=== PATIENT | male | born 1975 | race Two or more races ===

== ENCOUNTER 2022-08-12 14:53 | Inpatient (IN) | payer MEDICAID ==
[~2022-08-12] VITALS: Ht 182.9 cm; Wt 70.8 kg
[2022-08-12] MEDS ORDERED: LORAZEPAM 2 MG/1 ML VIAL IM ONE (15:00)
[2022-08-12] MEDS ORDERED: LORAZEPAM 2 MG/1 ML VIAL ONE (15:56)
[2022-08-12] MEDS ORDERED: KETAMINE HCL 500 MG/10 ML INJ ONE (17:05)
[2022-08-12] MEDS ORDERED: KETAMINE HCL 500 MG/10 ML INJ IM STA (17:11)
--- NOTE | 2022-08-12 17:13 | NUR ---
verbally ordered 50 mg ketamine IM, given left deltoid.
[2022-08-12] MEDS ORDERED: LIDOCAINE HCL 1% 20 ML VIAL ONE (17:33)
--- NOTE | 2022-08-12 17:44 | NUR ---
wasted 450mg ketamine, entered in omnicell also.
--- NOTE | 2022-08-12 18:29 | NUR ---
Called [facility] for transport back to [facility], ETA 1999.
[2022-08-12] MEDS ORDERED: IV NORMAL SALINE 1000 ML BAG IV ONE (19:45)
[2022-08-12] MEDS ORDERED: ACET-2154 GT (20:29)
[2022-08-12] MEDS ORDERED: LORA2VIA33 IM (20:29)
[2022-08-12] MEDS ORDERED: ENOX40DI SQ (20:29)
[2022-08-12] MEDS ORDERED: DOCU-141 GT (20:29)
[2022-08-12] MEDS ORDERED: HYDR-3972 GT (20:29)
[2022-08-12] MEDS ORDERED: LAMO100T2 GT (20:29)
[2022-08-12] MEDS ORDERED: BISA10SU61 RC (20:29)
[2022-08-12] MEDS ORDERED: TOPI100T GT (20:29)
[2022-08-12] MEDS ORDERED: LIOT25TA7 PO (20:29)
[2022-08-12] MEDS ORDERED: GABA300C GT (20:29)
[2022-08-12] MEDS ORDERED: LEVE1000 GT (20:29)
[2022-08-12] MEDS ORDERED: LEVO75TA7 GT (20:29)
[2022-08-12] MEDS ORDERED: MAGN400O6 GT (20:29)
[2022-08-12] MEDS ORDERED: NA P133E RC (20:29)
[2022-08-12] MEDS ORDERED: MULT-594 GT (20:29)
[2022-08-12] MEDS ORDERED: METO50TA16 PO (20:29)
[2022-08-12] MEDS ORDERED: ACET-73 GT (20:29)
[2022-08-12] MEDS ORDERED: HALOPERIDOL LACTATE 5 MG/1 ML VIAL IM ONE (20:30)
--- NOTE | 2022-08-12 21:04 | NUR ---
Ambulance crew unabole to take patient due to elevated HR of 138. Unable IV, bloodwork obtained by physician, femoral stick. [facility] nurse called to come in and stated that they would not be coming in at this hour. The ER physician reported this to [employer] and stated that patient would need to be admitted to hospital due to inability to give IV fluids and then DC patient.
[2022-08-12 21:13] LABS: CARBON DIOXIDE 23 mmol/L (21-32); CHLORIDE 106 mmol/L (98-107); CREATININE 0.8 mg/dL (0.6-1.3); GLUCOSE 114 mg/dL (74-106); POTASSIUM 3.7 mmol/L (3.5-5.1); UREA NITROGEN, BLOOD 13 mg/dL (7-18)
[2022-08-12 21:24] LABS: BILIRUBIN,DIRECT 0.3 mg/dL (0.0-0.2); TOTAL PROTEIN, SERUM 7.6 g/dL (6.4-8.2)
[2022-08-12 21:28] LABS: HEMATOCRIT 50.8 % (36.7-47.1); MEAN CORPUSCULAR HEMOGLOBIN 31.9 uug (23.8-33.4); MEAN CORPUSCULAR VOLUME 89.9 fL (73.0-96.2); PLATELET COUNT (AUTO) 163 K/uL (152-348)
--- NOTE | 2022-08-12 23:17 | NUR ---
Dr. Garcias on panel call with Denise Quintana DNP.
[2022-08-12] MEDS ORDERED: CEFTRIAXONE 1 G VIAL ONE (23:51)
[2022-08-13] MEDS ORDERED: IV NORMAL SALINE 1000 ML BAG IV ONE
[2022-08-13] MEDS ORDERED: CEFTRIAXONE 1 G in IV DEXTROSE 5% 50 ML IV ONE ×2
[2022-08-13 00:16] LABS: MEAN CORPUSCULAR HEMOGLOBIN 32.1 uug (23.8-33.4); MEAN CORPUSCULAR VOLUME 88.9 fL (73.0-96.2); PLATELET COUNT (AUTO) 173 K/uL (152-348)
[2022-08-13 00:26] LABS: CREATININE 0.9 mg/dL (0.6-1.3); POTASSIUM 3.8 mmol/L (3.5-5.1)
[2022-08-13 02:11] LABS: LYMPHOCYTES % (MANUAL) 11 % (20-40); MONOCYTES % (MANUAL) 6 % (2-10); NEUTROPHILS % (MANUAL) 83 % (42-75)
[2022-08-13] MEDS ORDERED: IV 0.9% SODIUM CHLORID+ 20 KCL 1,000 ML IV ONE (02:30)
[2022-08-13] MEDS ORDERED: KETAMINE HCL 500 MG/10 ML INJ ONE (02:47)
[2022-08-13] MEDS ORDERED: IOHEXOL 350 100 ML INFUS..BTL ONE (03:00)
[2022-08-13] MEDS ORDERED: SWABABLE VALVE TRANSFER SET EA MC ONE (03:00)
[2022-08-13] MEDS ORDERED: IV NORMAL SALINE 250 ML IV ONE (03:01)
--- NOTE | 2022-08-13 03:35 | NUR ---
Pt out to CT, accompanied pt to CT, due to moderate sedation procedure. MD, and RT at bedside, pt on monitor.
[2022-08-13] MEDS ORDERED: KETAMINE HCL 500 MG/10 ML INJ IV ONE (03:45)
[2022-08-13] MEDS ORDERED: IV 0.9% SODIUM CHLORID+ 20 KCL 1,000 ML ONE (04:31)
--- NOTE | 2022-08-13 05:51 | NUR ---
Called [facility] to page Anel Sarkar NP.
[2022-08-13] MEDS ORDERED: REMEDY ESSENTIAL ZINC PASTE 113 GM TP PRN (06:15)
[2022-08-13] MEDS ORDERED: ONDANSETRON 4 MG/2 ML VIAL IV PRN (06:15)
[2022-08-13] MEDS ORDERED: ACETAMINOPHEN 325 MG TABLET-SA PATIENTS-PAIN ONLY GT PRN (06:15)
[2022-08-13] MEDS ORDERED: ACETAMINOPHEN ES 500 MG TABLET- SA PATIENTS-PAIN ONLY GT PRN (06:15)
[2022-08-13] MEDS ORDERED: ACETAMINOPHEN 325 MG TABLET GT PRN (06:15)
[2022-08-13] MEDS ORDERED: MAGNESIUM HYDROXIDE 30 ML LIQUID UDC GT PRN (06:15)
[2022-08-13] MEDS ORDERED: MAGNESIUM HYDROXIDE 30 ML LIQUID UDC PO PRN (06:15)
[2022-08-13] MEDS ORDERED: CEFTRIAXONE 1 G in IV DEXTROSE 5% 50 ML IV SCH (06:15)
[2022-08-13] MEDS ORDERED: FLEET ENEMA 133 ML BOTTLE RC PRN (06:15)
[2022-08-13] MEDS ORDERED: BISACODYL 10 MG SUPP.RECT RC PRN (06:15)
[2022-08-13] MEDS ORDERED: HYDROMORPHONE 1 MG/1 ML DISP.SYRIN ONE (08:00)
[2022-08-13] MEDS: HYDROMORPHONE 1 MG/1 ML DISP.SYRIN IV PRN (08:04)
[2022-08-13] MEDS ORDERED: CEFTRIAXONE 1 G VIAL ONE (08:11)
[2022-08-13] MEDS ORDERED: ACETAMINOPHEN 325 MG TABLET ONE (08:11)
[2022-08-13] MEDS ORDERED: CEFTRIAXONE /D5W 50ML IVPB **ER PYXIS IV ONE (08:13)
[2022-08-13] MEDS ORDERED: ACETAMINOPHEN 650 MG SUPP.RECT RC ONE (08:30)
--- NOTE | 2022-08-13 09:30 | NUR ---
Received the patient from the off-going nurse. Patient observed on the monitor with sinus tachycardia, asleep but responsive to tactile stimuli. Patient is on a simple mask, O2 @ 9 LPM saturation 98%. Patient observed with Kurlex bandage to his head, (LT) eye swollen shut with periorbital ecchymosis, nose swollen with dried blood and upper lip swollen. Patient has a G-Tube, site WNL. Patient has a 18French Felder catheter in place, attached to his (RT) thigh, below the bladder and draining straw color urine, 420ML emptied. Patient has (LT) groin TLC in place, site WNL and KCL 20mEq @ 200ML infusing. Patient observed moaning/groaning and restless, observed with elevated temp 101.3. Patient medicated for pain, fever and IVABT due administered (see eMAR). Patient has an assigned bed, assigned nurse Nestor VALENTIN , called and verbal report given via the telephone. Patient stable transported on manager cardiac cath to his assigned bed. Patient left with his assigned nurse.
[2022-08-13] MEDS: levETIRAcetam 500 MG/5 ML LIQUID UDC GT SCH ×2 (10:45→20:42)
[2022-08-13] MEDS: LAMOTRIGINE 100 MG TABLET GT SCH (10:45)
[2022-08-13] MEDS: TOPIRAMATE 100 MG TABLET GT SCH ×2 (10:45→16:59)
[2022-08-13] MEDS: MULTIVITAMINS,THERAPEUTIC TABLET GT SCH (10:45)
[2022-08-13 10:46] VITALS: BP 114/95
[2022-08-13] MEDS: METOPROLOL TARTRATE 50 MG TABLET GT SCH ×2 (10:46→20:34)
[2022-08-13] MEDS: LEVOTHYROXINE SODIUM 75 MCG TABLET GT SCH (10:46)
[2022-08-13] MEDS: LIOTHYRONINE SODIUM 25 MCG TABLET GT SCH (10:46)
[2022-08-13] MEDS: HYDROCODONE/APAP 5-325MG TABLET GT PRN ×2 (10:47→19:33)
[2022-08-13] MEDS: IV NS 1000 ML 1,000 ML IV PRN ×2 (11:51→20:01)
[2022-08-13] MEDS ORDERED: JEVITY 1.2 1000 ML LIQUID GT SCH (14:15)
[2022-08-13 15:13] VITALS: BP 106/70
[2022-08-13] MEDS: JEVITY 1.2 1000 ML LIQUID GT PRN (18:00)
--- NOTE | 2022-08-13 19:30 | NUR ---
Received Pt from Day shift: Pt is A&Ox0 and is in soft restraints on only the right hand. Current vitals are BP: 124/79, T: 99.6, P: 117, RR: 20, and SpO2: 93%. Telemonitor shows ST. Will continue to monitor.
[2022-08-13 20:00] VITALS: BP 124/79
[2022-08-13] MEDS: LORAZEPAM 2 MG/1 ML VIAL IM PRN (20:34)
[2022-08-13] MEDS: DOCUSATE SODIUM 100 MG/10 ML LIQUID UDC GT SCH (20:34)
[2022-08-13] MEDS: GABAPENTIN 300 MG CAPSULE GT SCH (20:34)
[2022-08-14] VITALS: BP 136/82
--- NOTE | 2022-08-14 01:59 | NUR ---
Applied adhesive dressing on each heel to prevent skin breakdown. Will continue to monitor.
[2022-08-14] MEDS: HYDROMORPHONE 1 MG/1 ML DISP.SYRIN IV PRN ×4 (02:26→20:19)
[2022-08-14] MEDS: IV NS 1000 ML 1,000 ML IV PRN ×3 (03:15→22:39)
[2022-08-14 04:00] VITALS: BP 130/85
[2022-08-14] MEDS: LORAZEPAM 2 MG/1 ML VIAL IM PRN ×3 (05:53→22:29)
[2022-08-14 06:25] LABS: HEMATOCRIT 41.5 % (36.7-47.1); MEAN CORPUSCULAR HEMOGLOBIN 31.9 uug (23.8-33.4); MEAN CORPUSCULAR VOLUME 90.3 fL (73.0-96.2); PLATELET COUNT (AUTO) 137 K/uL (152-348)
[2022-08-14 06:31] LABS: CREATININE 0.7 mg/dL (0.6-1.3); MAGNESIUM 1.8 mg/dL (1.8-2.4); PHOSPHOROUS 2.3 mg/dL (2.5-4.9); POTASSIUM 3.5 mmol/L (3.5-5.1)
--- NOTE | 2022-08-14 08:00 | NUR ---
Fall precaution implemented. Bed alarm on. Pt near nursing station. Will manage pt's pain with pain meds as ordered. Will manage anxiety with ATIVAN. HOB elevated. G TUBE infusing as ordered. F/C draining eryn yellowish urine by gravity. Applied ice on swollen forehead. Noted greenish drainage on shiraz eyes cleansed with NS. LEFT femoral line with 3 lumens intact. Call light is within reach. Pt contracted on left hand. Applied mepilex on shiraz heels for skin protection secondary to pt likes to rub his heels consistently when anxious.
[2022-08-14] MEDS: LIOTHYRONINE SODIUM 25 MCG TABLET GT SCH (10:05)
[2022-08-14] MEDS: CEFTRIAXONE 1 G in IV DEXTROSE 5% 50 ML IV SCH (10:05)
[2022-08-14] MEDS: LAMOTRIGINE 100 MG TABLET GT SCH (10:07)
[2022-08-14] MEDS: TOPIRAMATE 100 MG TABLET GT SCH ×2 (10:07→16:18)
[2022-08-14] MEDS: LEVOTHYROXINE SODIUM 75 MCG TABLET GT SCH (10:07)
[2022-08-14] MEDS: levETIRAcetam 500 MG/5 ML LIQUID UDC GT SCH ×2 (10:07→20:00)
[2022-08-14] MEDS: METOPROLOL TARTRATE 50 MG TABLET GT SCH ×2 (10:10→20:13)
[2022-08-14] MEDS: MULTIVITAMINS,THERAPEUTIC TABLET GT SCH (10:11)
[2022-08-14 11:28] VITALS: BP 132/96
[2022-08-14 15:16] VITALS: BP 138/87
[2022-08-14] MEDS ORDERED: NEUTRA PHOS PACKET GT ONE (16:00)
--- NOTE | 2022-08-14 18:48 | NUR ---
Notified Hematuria on f/c Notified KONG no new order received. PT comfortable in bed.
--- NOTE | 2022-08-14 19:45 | NUR ---
Patient asleep but arousable, no sob no chest pain, sinus rhythm, sinus tachy, no s/s of pain at this time, but with episode of restlessness, throwing pillow at the floor, du cath with eryn reddish color urine Santos Malaika [employer] aware, neuro check done, pupil risk response to light, forehead laceration/sutures dressing intact, on oxygen via mask sat wnl, cont to monitor.
[2022-08-14 20:00] VITALS: BP 123/82
[2022-08-14] MEDS: DOCUSATE SODIUM 100 MG/10 ML LIQUID UDC GT SCH (20:00)
[2022-08-14] MEDS: GABAPENTIN 300 MG CAPSULE GT SCH (20:00)
[2022-08-14] MEDS: JEVITY 1.2 1000 ML LIQUID GT PRN (22:39)
[2022-08-15 00:47] VITALS: BP 118/79
[2022-08-15 04:00] VITALS: BP 123/83
[2022-08-15] MEDS: HYDROMORPHONE 1 MG/1 ML DISP.SYRIN IV PRN ×2 (05:10→15:42)
--- NOTE | 2022-08-15 05:27 | NUR ---
Patient awake, restless, moaning in bed, noted with gen pain, given Dilaudid 1mg via IV for pain and comfort cont to monitor.
[2022-08-15 07:05] LABS: CARBON DIOXIDE 24 mmol/L (21-32); CHLORIDE 109 mmol/L (98-107); CREATININE 0.6 mg/dL (0.6-1.3); GLUCOSE 116 mg/dL (74-106); PHOSPHOROUS 3.2 mg/dL (2.5-4.9); POTASSIUM 3.5 mmol/L (3.5-5.1); UREA NITROGEN, BLOOD 4 mg/dL (7-18)
[2022-08-15] MEDS: TOPIRAMATE 100 MG TABLET GT SCH ×2 (08:17→16:45)
[2022-08-15] MEDS: LAMOTRIGINE 100 MG TABLET GT SCH (08:17)
[2022-08-15] MEDS: LEVOTHYROXINE SODIUM 75 MCG TABLET GT SCH (08:17)
[2022-08-15] MEDS: levETIRAcetam 500 MG/5 ML LIQUID UDC GT SCH (08:17)
[2022-08-15] MEDS: LIOTHYRONINE SODIUM 25 MCG TABLET GT SCH (08:18)
[2022-08-15] MEDS: CEFTRIAXONE 1 G in IV DEXTROSE 5% 50 ML IV SCH (08:19)
[2022-08-15] MEDS: METOPROLOL TARTRATE 50 MG TABLET GT SCH (08:42)
[2022-08-15] MEDS: IV NS 1000 ML 1,000 ML IV PRN (09:16)
[2022-08-15] MEDS: MULTIVITAMINS,THERAPEUTIC TABLET GT SCH (11:08)
[2022-08-15 11:35] VITALS: BP 138/94
--- NOTE | 2022-08-15 13:48 | NUR ---
WOUND CARE CONSULT: PT PRESENTS WITH DISCOLORATION TO FACE, SUTURES TO NASAL AREA AND DRESSING TO FOREHEAD WHICH IS ADHERENT, PRESENT ON ADMISSION. SURGICAL CONSULT CALLED TO DR PEREZ. PT NOTED TO BE MOVING ABOUT IN BED WITH SUDDEN MOVEMENTS OF HIS LEGS. DISCUSSED SKIN PROTECTION WITH NURSING STAFF.
[2022-08-15] MEDS ORDERED: VANCOMYCIN IV 1,500 MG in IV DEXTROSE 5% 500 ML IV ONE (14:00)
--- NOTE | 2022-08-15 14:08 | NUR ---
WOUND CARE: FOREHEAD DRESSING WAS REMOVED AFTER SOAKING WITH NORMAL SALINE AND SPEAKING VERY GENTLY TO PT. SUTURED LACERATION NOTED TO EYEBROW AREA WITH OPEN AREA, PRESENT ON ADMISSION. RECOMMENDATIONS MADE FOR SKIN PROTECTION AND WOUND CARE. DISCUSSED WITH NURSING STAFF AND WITH SURGICAL P.A. FOR DR PEREZ. IN AGREEMENT WITH PLAN OF CARE.
[2022-08-15 16:30] VITALS: BP 135/98
[2022-08-15] MEDS: JEVITY 1.2 1000 ML LIQUID GT PRN (18:35)
--- NOTE | 2022-08-15 19:00 | NUR ---
Pt. discharged to [facility] and rehab. He was transferred via [place]. IV line on the groin area was removed. Belonging was returned to family member. Pt. note to be stable upon the discharge.
[2022-08-15] MEDS ORDERED: VANCOMYCIN IV 1,250 MG in IV DEXTROSE 5% 250 ML IV SCH (22:00)
== END 2022-08-15 20:00 | DRG 384 ==
LOC: ER 14:53 → TELE3 08-13 08:51
PROVIDERS: ADMIT Nurse Practitioner Acute Care; ATTEND Nurse Practitioner Acute Care
PROC: B54CZZA Ultrasonography of Left Lower Extremity Veins, Guidance (ICD-10-PCS; principal; 2022-08-13)
PROC: 06HN33Z Insertion of Infusion Device into Left Femoral Vein, Percutaneous Approach (ICD-10-PCS; principal; 2022-08-13)
PROC: 0HQ1XZZ Repair Face Skin, External Approach (ICD-10-PCS; principal; 2022-08-13)
PROC: 09QKXZZ Repair Nasal Mucosa and Soft Tissue, External Approach (ICD-10-PCS; principal; 2022-08-13)
DX: S01.81XA Laceration without foreign body of other part of head, initial encounter (principal); G93.49 Other encephalopathy; G93.1 Anoxic brain damage, not elsewhere classified; J96.10 Chronic respiratory failure, unspecified whether with hypoxia or hypercapnia; Z99.11 Dependence on respirator [ventilator] status; Z93.0 Tracheostomy status; S09.90XA Unspecified injury of head, initial encounter; Z99.81 Dependence on supplemental oxygen; E03.9 Hypothyroidism, unspecified; E86.0 Dehydration; F41.9 Anxiety disorder, unspecified; G40.909 Epilepsy, unspecified, not intractable, without status epilepticus; Z86.16 Personal history of COVID-19; Z87.891 Personal history of nicotine dependence; K21.9 Gastro-esophageal reflux disease without esophagitis; R53.1 Weakness; R00.0 Tachycardia, unspecified; W06.XXXA Fall from bed, initial encounter; R40.2132 Coma scale, eyes open, to sound, at arrival to emergency department; Y93.9 Activity, unspecified; R40.2362 Coma scale, best motor response, obeys commands, at arrival to emergency department; R40.2242 Coma scale, best verbal response, confused conversation, at arrival to emergency department; Z20.822 Contact with and (suspected) exposure to COVID-19; Y92.129 Unspecified place in nursing home as the place of occurrence of the external cause; R13.10 Dysphagia, unspecified
CPT/HCPCS: 36415; 36556; 51702; 70030-TC; 70450; 71045; 71275; 72125; 83605; 83735; 84100; 84484; 85025; 87040; 93005; A6209; G0378; G0500; J0696; J1170; J2060; J3370; J3490; J7040; J7050; J7060; J8499; Q9967